=== PATIENT | female | born 1930 | race Caucasian/White ===

== ENCOUNTER 2017-09-30 11:23 | Emergency (ER) | payer BC, OTHER ==
[2017-09-30] MEDS: SOD CHLORIDE 0.9% 1,000 ML IV (22:13)
[2017-09-30 22:24] LABS: WHITE BLOOD COUNT 5.9 10^3/ul (4.8-10.8)
[2017-09-30 22:24] LABS: HEMATOCRIT 34.4 % (37.0-47.0); HEMOGLOBIN 11.4 g/dl (12.0-16.0); MEAN CORPUSCULAR HEMOGLOBIN 30.8 pg (29.0-33.0); MEAN CORPUSCULAR HGB CONC 33.1 g/dl (32.0-37.0); MEAN PLATELET VOLUME 9.8 fl (7.4-10.4); PLATELET COUNT 205 10^3/UL (140-415); RED CELL DISTRIBUTION WIDTH 12.3 % (11.5-14.5)
[2017-09-30 22:25] LABS: POSITIVE DIFF @See below
[2017-09-30 22:27] LABS: ADD MAN DIFF? YES
[2017-09-30 22:44] LABS: ANION GAP 13 (8-16); BLOOD UREA NITROGEN 23 mg/dl (7-20); CALCIUM 9.1 mg/dl (8.4-10.2); CARBON DIOXIDE 28 mmol/L (21-31); CHLORIDE 100 mmol/L (97-110); CREATININE 0.74 mg/dl (0.44-1.00); GLUCOSE 103 mg/dl (70-220); POTASSIUM 4.5 mmol/L (3.5-5.1); SODIUM 136 mmol/L (135-144)
[2017-09-30 22:48] LABS: ADD UMIC YES; UR ASCORBIC ACID NEGATIVE (NEGATIVE); UR BILIRUBIN (Dip) NEGATIVE (NEGATIVE); UR BLOOD (Dip) 1+ mg/dL (NEGATIVE); UR CLARITY SLIGHTLY CLOUDY (CLEAR); UR COLOR YELLOW (YELLOW); UR GLUCOSE (Dip) NEGATIVE (NEGATIVE); UR KETONES (Dip) NEGATIVE (NEGATIVE); UR LEUKOCYTE ESTERASE (Dip) 3+ Leu/ul (NEGATIVE); UR MUCUS FEW /HPF (NONE SEEN); UR NITRITE (Dip) NEGATIVE (NEGATIVE); UR RBC 7 /HPF (0-5); UR SPECIFIC GRAVITY (Dip) 1.024 (1.003-1.030); UR SQUAMOUS EPITHELIAL CELL FEW /HPF (FEW); UR TOTAL PROTEIN (Dip) NEGATIVE (NEGATIVE); UR UROBILINOGEN (Dip) NEGATIVE (NEGATIVE); UR WBC 37 /HPF (0-5)
[2017-09-30 22:50] LABS: EOSINOPHILS % (M) 3 % (0-7); LYMPHOCYTES #M 1.7 10^3/ul (0.8-2.9); LYMPHOCYTES % (M) 29 % (15-51); MONOCYTE #M 0.6 10^3/ul (0.3-0.9); MONOCYTES % (M) 11 % (0-11); PLATELET ESTIMATE NORMAL; SEGMENTED NEUTROPHILS (M) % 57 % (39-77); SMUDGE%M 4 % (0-0)
[2017-09-30 22:56] LABS: B-TYPE NATRIURETIC PEPTIDE 342 PG/ML (0-450)
[2017-09-30 22:57] LABS: TROPONIN-I < 0.012 ng/ml (0.00-0.12)
[2017-09-30] MEDS: CEFTRIAXONE 1 GM/50 ML (PMX) 50 ML IVPB (23:38)
== END 2017-10-01 00:38 | disposition home or self-care (01) ==
LOC: E/R 10-01 00:38
DX: J20.9 Acute bronchitis, unspecified (principal); R40.2252 Coma scale, best verbal response, oriented, at arrival to emergency department; N39.0 Urinary tract infection, site not specified; R59.9 Enlarged lymph nodes, unspecified; R40.2142 Coma scale, eyes open, spontaneous, at arrival to emergency department; R40.2362 Coma scale, best motor response, obeys commands, at arrival to emergency department; R07.9 Chest pain, unspecified
CPT/HCPCS: 71045; 80048; 81001; 83880; 84484; 85025; 93005; 96374; 99285-25